=== PATIENT | male | born 1990 | race Two or more races ===

== ENCOUNTER 2018-09-16 22:26 | Emergency (ER) | payer SELFPAY ==
--- NOTE | 2018-09-16 22:59 | EDM.PDOC ---
ED HPI GENERAL MEDICAL PROBLEM - General Chief Complaint: Genitourinary Problem Stated Complaint: ERECTION FOR 4-5 HOURS Time Seen by Provider: 09/16/18 22:46 Source of Information: Reports: Patient, RN Notes Reviewed, Significant Other ( Girlfriend) History Limitations: Reports: No Limitations - History of Present Illness INITIAL COMMENTS - FREE TEXT/NARRATIVE: The patient states that he took one of his mother's trazodone pills around 14: 30 this afternoon, then awoke around 18:00 with a painful erection that he has not been able to relieve. He states that he tried taking a cold shower, but vomited. He also reports not having any urine output since he woke up. No prior similar symptoms. The patient is certain that the medication that he took was trazodone. While they are his mother's, he states that she gave him up 4 tablets, that they are all identical, and the same as prior trazodone pills that he has taken in the past. He denies any other recreational drug use. The patient does not have a PCP. Penis Pain Score (Numeric/FACES): 9 - Related Data Allergies Allergy/AdvReac Type Severity Reaction Status Date / Time No Known Allergies Allergy Verified 09/16/18 22:38 Home Meds: Home Meds . [No Known Home Meds] 09/16/18 [History] Past Medical History - Past Health History Medical/Surgical History: Denies Medical/Surgical History Social & Family History - Tobacco Use Smoking Status *Q: Current Every Day Smoker Years of Tobacco use: 14 Packs/Tins Daily: 0.3 - Alcohol Use Alcohol Use History: Yes Alcohol Use Frequency: Socially - Recreational Drug Use Recreational Drug Use: Yes Drug Use in Last 12 Months: Yes Recreational Drug Type: Reports: Marijuana/Hashish (last smoked January 2018) - Living Situation & Occupation Living situation: Reports: Single, Alone Occupation: Employed ([employer]) ED ROS GENERAL - Review of Systems Review Of Systems: ROS reveals no pertinent complaints other than HPI. ED EXAM, RENAL/ - Physical Exam Exam: See Below Exam Limited By: No Limitations General Appearance: Alert, WD/WN, No Apparent Distress Eye Exam: Bilateral Eye: EOMI, Normal Inspection Ears: Normal External Exam, Hearing Grossly Normal Nose: Normal Inspection Throat/Mouth: Normal Inspection, Normal Lips, Normal Voice, No Airway Compromise Head: Atraumatic, Normocephalic Neck: Normal Inspection, Full Range of Motion Respiratory/Chest: No Respiratory Distress, Lungs Clear, Normal Breath Sounds, No Accessory Muscle Use Cardiovascular: Normal Peripheral Pulses, Regular Rate, Rhythm, No Gallop, No JVD, No Murmur, No Rub GI/Abdominal: Normal Bowel Sounds, Soft, Non-Tender, No Organomegaly, No Distention, No Abnormal Bruit, No Mass (Male) Exam: Circumcised, Other (Penile erection. No discoloration.) Rectal (Males) Exam: Deferred Back Exam: Normal Inspection, Full Range of Motion, NT Extremities: Normal Inspection, Normal Range of Motion, No Pedal Edema, Normal Capillary Refill Neurological: Alert, Oriented, Normal Cognition, No Motor/Sensory Deficits Psychiatric: Normal Affect Skin Exam: Warm, Dry, Intact, Normal Color, No Rash ED PROCEDURES - Additional/Other Procedure(s) Procedure(s) (Free Text): Procedure: Intracavernosal injection of phenylephrine Indication: Ischemic priapism Sterile prep: Betadyne Anesthesia: Bupivacaine 0.5% without epinephrine The shaft of the penis was sterilized with Betadine. I then injected about 1 ml bupivacaine 0.5% without epinephrine into the skin of the lateral aspect of the penis, midshaft, for local anesthesia, then, using a 27-gauge needle, I injected 1 mL = 100 g of phenylephrine into the left corpora cavernosum at midshaft every 3 minutes, leaving the needle in place but removing and replacing the syringe, until 7 mL had been injected, after which I the injections 4 to 5 minutes apart. The patient tolerated the procedure well. Course - Vital Signs Last Recorded V/S: Last Vital Signs Temp 36.2 C 09/16/18 22:38 Pulse 76 09/16/18 22:38 Resp 20 09/16/18 22:38 BP 131/71 09/16/18 22:38 Pulse Ox 100 09/16/18 22:38 - Orders/Labs/Meds Orders: Active Orders 24 hr Category Date Time Status Bladder Scan [RC] ASDIRECTED Care 09/16/18 22:49 Active Meds: Medications Discontinued Medications Generic Name Dose Route Start Last Admin Trade Name Freq PRN Reason Stop Dose Admin Bupivacaine HCl 10 ml 09/16/18 23:18 09/17/18 00:58 Sensorcaine-Mpf 0.5% INJECT 09/16/18 23:19 10 ml ONETIME ONE Administration Ibuprofen 600 mg 09/17/18 02:43 09/17/18 02:47 Motrin PO 09/17/18 02:44 600 mg ONETIME ONE Administration Phenylephrine HCl 1 mg 09/16/18 23:18 Phenylephrine In Ns 100 Mcg/Ml IVPUSH 09/16/18 23:19 ONETIME STA Phenylephrine HCl Confirm 09/16/18 23:26 09/17/18 00:58 Melvin-Synephrine Administered 09/16/18 23:27 10 mg Dose Administration 10 mg .ROUTE .[facility] ONE - Re-Assessments/Exams Free Text/Narrative Re-Assessment/Exam: 09/16/18 23:[address] [facility] [place] [facility], but they did not answer. We are trying [facility] Call. 09/17/18 00:57 Case discussed with [facility] Call at 23:01. Case then discussed with Dr. Montgomery at 23:05, Urologist at [facility]. He recommended that we prepare a solution of phenylephrine for injection, at 1 mg/10 ml = 100 g/ml. He recommended that I numb the skin of the lateral side of the penis with some local anesthetic, then inject 1 mL = 100 g into one of the corpora cavernosum at midshaft, every 3 to 5 minutes, to a maximum of 1 mg = 10 ml. Only one side needs injection, because the two communicate. He explained that I should not expect an immediate response, but that if the erection can reduce to 20-30% erection, the patient would likely be able to be discharged home. If we cannot get the erection down to that degree, then the patient would likely need to be transferred to [place] for clot evacuation, which would require a penile block and large-bore needle. The above phenylephrine preparation was made and checked. Please see the procedure note. Initially, there was no reduction in the patient's erection, however, after about 7 mL of injection, the erection began to decrease, and, now, following the full 10 mL injection, the erection is down to about 20%. [facility] Call again contacted at 00:47. Case then discussed again with Dr. Montgomery at 00:50. Based on the degree of reduction of the erection, he did not feel that the patient needed to be transferred to [place] at this time. He recommended that we keep the patient here in the ED for another hour, applying an ice pack on and off every 10 or 15 minutes, and keep the patient adequately hydrated. So long as the patient's erection does not return, the patient can follow-up with Dr. Montgomery in 1- 2 weeks. 09/17/18 02:25 The patient was able to urinate. On physical examination, the patient appears to have an approximately 30% erection, which Dr. Montgomery had indicated might happen, and is not a reason to not send him home, however, instead of having the patient follow-up in 1 to 2 weeks, I am recommending that the patient contact Dr. Montgomery's office first thing this morning, to see if he should travel to [place] to be seen sooner. The patient agreed to. Departure - Departure Time of Disposition: 02:30 Disposition: Home, Self-Care 01 Condition: Good Clinical Impression: Drug-induced priapism - Discharge Information *PRESCRIPTION DRUG MONITORING PROGRAM REVIEWED*: Not Applicable *COPY OF PRESCRIPTION DRUG MONITORING REPORT IN PATIENT MARQUES: Not Applicable Instructions: Priapism Referrals: Carmelina Montgomery MD [Ordering Only Provider] - Forms: ED Department Discharge, ED Return to Work/School Form Additional Instructions: You were seen in the emergency room for a prolonged erection, a condition known as priapism. In consultation with the Urologist Dr. Montgomery, your penis was repeatedly injected with phenylephrine, successfully reducing your erection to 20-30%. We recommend that you continue to apply ice packs for 10-15 minutes on and off, for the next few days. As discussed, inadequately treated priapism can lead to lifelong impotence, therefore we strongly recommend that you contact the office of Dr. Montgomery first thing this morning, to make an appointment to be seen as soon as possible. Be aware that Dr. Montgomery's office is in [place], 1 hour ahead of us. If any other problems, including recurrence of your priapism or any difficulty urinating, please do not hesitate to return to the ER. - My Orders Last 24 Hours: My Active Orders 09/16/18 22:49 Bladder Scan [RC] ASDIRECTED - Assessment/Plan Last 24 Hours: My Active Orders 09/16/18 22:49 Bladder Scan [RC] ASDIRECTED
[2018-09-16] MEDS ORDERED: Bupivacaine 0.5% 10 ML SDV INJECT ONE (23:18)
[2018-09-16] MEDS ORDERED: Phenylephrine/Normal Saline 100 MCG/ML 10 ML Syringe IVPUSH STA (23:18)
[2018-09-16] MEDS ORDERED: Phenylephrine 1% 10 MG/ML SDV ONE (23:26)
[2018-09-17] MEDS ORDERED: Ibuprofen 600 MG Tab PO ONE (02:43)
== END 2018-09-17 02:48 | disposition home or self-care (01) ==
LOC: JD.ED 22:26
DX: T43.211A Poisoning by selective serotonin and norepinephrine reuptake inhibitors, accidental (unintentional), initial encounter (principal); N48.33 Priapism, drug-induced
CPT/HCPCS: 54220; 99283; A9270; J2370; J3490

== ENCOUNTER 2022-02-02 21:40 | Emergency (ER) | payer BC | END 2022-02-02 22:26 | LOC: JD.ED 21:40 | DX: Z53.21 Procedure and treatment not carried out due to patient leaving prior to being seen by health care provider (principal) ==

== ENCOUNTER 2023-03-16 20:06 | Emergency (ER) | payer SELFPAY ==
[2023-03-16 20:45] LABS: HEMATOCRIT 40.9 % (42.0-52.0); HEMOGLOBIN 14.4 gm/dl (14.0-18.0); MEAN CORPUSCULAR HGB CONC 35.2 g/dl (32.0-36.0); MEAN CORPUSCULAR VOLUME 85.2 fl (83.0-99.0); PLATELET COUNT,PLT 286 K/mm3 (150-400)
[2023-03-16 20:47] LABS: BARBITURATE SCREEN,URINE NEGATIVE (CUTOFF=200); BENZODIAZEPINES SCREEN,URINE NEGATIVE (CUTOFF=150); BUPRENORPHINE SCREEN,URINE NEGATIVE (CUTOFF=10); METHADONE SCREEN, URINE NEGATIVE (CUT0FF=200); METHAMPHETAMINES SCREEN, URINE NEGATIVE (CUTOFF=500); OXYCODONE SCREEN,URINE NEGATIVE (CUT0FF=100); PROPOXYPHENE SCREEN,URINE NEGATIVE (CUTOFF=300); THC SCREEN,URINE 20 NG/ML NEGATIVE (CUTOFF=50)
[2023-03-16 20:51] LABS: AMPHETAMINES SCREEN, URINE NEGATIVE (CUTOFF=500)
[2023-03-16 21:20] LABS: BAND PERCENT MAN 0 % (0-10); BASOPHILS PERCENT MAN 0 (0.2-1.2); EOSINOPHILS PERCENT MAN 3 % (0.8-7.0); LYMPHOCYTES % ATYPICAL MANUAL 0 %; LYMPHOCYTES PERCENT MAN 37 % (20-40); MONOCYTES PERCENT MAN 12 % (2-10)
[2023-03-16 21:21] LABS: PLATELET COUNT ESTIMATE ADEQUATE
[2023-03-16 21:22] LABS: A/G RATIO 1.3 (1-2); ANION GAP 10.9 (5-15); BILIRUBIN TOTAL 0.2 mg/dL (0.2-1.0); CALCIUM 9.1 mg/dL (8.5-10.1); EST CRCL DRUG DOSING (CG) 112.95 mL/min; POTASSIUM,K 3.9 mEq/L (3.5-5.1); TSH 1.524 uIU/mL (0.358-3.74)
[2023-03-16] MEDS ORDERED: LORazepam 1 MG Tab PO ONE (21:51)
== END 2023-03-16 22:35 | disposition left against medical advice (07) ==
LOC: JD.ED 20:06
DX: Z00.8 Encounter for other general examination (principal); Z53.20 Procedure and treatment not carried out because of patient's decision for unspecified reasons
CPT/HCPCS: 36415; 80053; 80143; 80179; 80306; 80307; 84443; 85007; 85027; 93005; 99283; A9270

== ENCOUNTER 2024-01-09 11:31 | Observation (INO) | payer MEDICAID ==
[2024-01-09] MEDS: Sodium Chloride 0.9% 10 ML Syringe FLUSH ONE (12:18)
[2024-01-09] MEDS: Iopamidol 612 MG/ML 100 ML Bottle IVPUSH ONE (12:18)
[2024-01-09] MEDS: Dexamethasone 4 MG/ML SDV IVPUSH ONE (12:27)
[2024-01-09] MEDS: Ketorolac 30 MG/ML SDV IVPUSH ONE (12:27)
[2024-01-09] MEDS: Sodium Chloride 0.9% 1,000 ML IV ONE (12:27)
[2024-01-09] MEDS: cefTRIAXone 1 GM in Sodium Chloride 0.9% 100 ML IV ONE (12:51)
[2024-01-09] MEDS: VANCOmycin 1.5 GM/300 ML 1.5 GM in Premix Bag 1 BAG IV ONE (12:51)
[2024-01-09 12:56] LABS: BASOPHILS PERCENT AUTO 0.2 % (0.0-1.0); EOSINOPHILS ABSOLUTE AUTO 0.1 K/mm3 (0.0-0.4); EOSINOPHILS PERCENT AUTO 0.6 % (0.0-6.0); IMMATURE GRAN ABSOLUTE AUTO 0.05 K/mm3 (0.00-0.05); IMMATURE GRAN PERCENT AUTO 0.4 % (0.0-0.4); LYMPHOCYTES ABSOLUTE AUTO 1.5 K/mm3 (1.0-4.8); LYMPHOCYTES PERCENT AUTO 11.2 % (24.0-44.0); MEAN CORPUSCULAR HEMOGLOBIN 29.5 pg (28.0-32.0); MEAN CORPUSCULAR VOLUME 84.4 fl (83.0-99.0); MEAN PLATELET VOLUME 9.3 fl (9.4-12.4); MONOCYTES ABSOLUTE AUTO 1.2 K/mm3 (0.0-0.8); MONOCYTES PERCENT AUTO 8.4 % (0.0-8.0); NEUTROPHILS ABSOLUTE AUTO 10.9 K/mm3 (1.8-7.7); NEUTROPHILS PERCENT AUTO 79.2 % (41.0-71.0); PLATELET COUNT,PLT 301 K/mm3 (150-400); RED BLOOD CELL COUNT 5.45 M/mm3 (4.52-5.90); WHITE BLOOD CELL COUNT,WBC 13.77 K/mm3 (3.9-11.3)
[2024-01-09 13:00] LABS: HEMOGLOBIN 16.1 gm/dl (14.0-18.0)
[2024-01-09 13:16] LABS: A/G RATIO 1.2 (1-2); ALBUMIN 4.2 g/dl (3.4-5.0); BILIRUBIN TOTAL 0.4 mg/dL (0.2-1.0); BUN/CREATININE RATIO 8.2 (14-18); C-REACTIVE PROTEIN 0.19 mg/dL (<0.30); CALCIUM 9.3 mg/dL (8.5-10.1); CREATININE 1.1 mg/dL (0.7-1.3); EST CRCL DRUG DOSING (CG) 95.52 mL/min; PROTEIN TOTAL,TP 7.6 g/dl (6.4-8.2)
[2024-01-09 13:19] LABS: LACTIC ACID 1.6 mmol/L (0.4-2.0)
[2024-01-09 17:26] LABS: C. TRACHOMATIS BY PCR NOT DETECTED; N. GONORRHOEAE BY PCR NOT DETECTED
[2024-01-09] MEDS: Potassium Chloride 20 MEQ Tab.ER PO ONE (17:37)
== END 2024-01-09 18:00 | disposition left against medical advice (07) ==
LOC: JD.ED 11:31 → JD.MS 14:12
PROVIDERS: ADMIT Student in an Organized Health Care Education/Training Program; ATTEND Student in an Organized Health Care Education/Training Program
DX: L04.0 Acute lymphadenitis of face, head and neck (principal)
CPT/HCPCS: 36415; 70491; 70491-26; 80053; 83605; 85025; 85652; 86140; 86592; 87040; 87154; 87491; 87591; 96365; 96366; 96367; 96375; 99284-25; G0433; J0696; J1100; J1885; J3490; J7030; Q9967

== ENCOUNTER 2024-01-10 13:48 | Inpatient (IN) | payer MEDICAID ==
[2024-01-10] MEDS: Labetalol 100 MG/20 ML MDV IVPUSH ONE (15:46)
[2024-01-10] MEDS: Sodium Chloride 0.9% 1,000 ML IV ONE ×2 (16:09→21:24)
[2024-01-10] MEDS: cefTRIAXone 1 GM in Sodium Chloride 0.9% 100 ML IV ONE (16:09)
[2024-01-10] MEDS: methylPREDNISolone Sodium Succinate 125 MG/2 ML SDV IVPUSH ONE (16:10)
[2024-01-10] MEDS: Ketorolac 30 MG/ML SDV IVPUSH ONE (16:10)
[2024-01-10 17:46] LABS: HEMATOCRIT 43.7 % (42.0-52.0); HEMOGLOBIN 15.3 gm/dl (14.0-18.0); MEAN CORPUSCULAR HEMOGLOBIN 29.4 pg (28.0-32.0); MEAN CORPUSCULAR VOLUME 83.9 fl (83.0-99.0); PLATELET COUNT,PLT 297 K/mm3 (150-400); RED BLOOD CELL COUNT 5.21 M/mm3 (4.52-5.90); WHITE BLOOD CELL COUNT,WBC 14.43 K/mm3 (3.9-11.3)
[2024-01-10] MEDS: Enoxaparin 40 MG/0.4 ML Syringe SUBCUT SCH (17:57)
[2024-01-10 18:00] LABS: A/G RATIO 1.1 (1-2); ANION GAP 14.9 (5-15); BILIRUBIN TOTAL 0.8 mg/dL (0.2-1.0); BUN/CREATININE RATIO 6.4 (14-18); CALCIUM 9.4 mg/dL (8.5-10.1); CREATININE 1.1 mg/dL (0.7-1.3); EST CRCL DRUG DOSING (CG) 101.73 mL/min; MAGNESIUM 1.7 mg/dL (1.8-2.4); PHOSPHORUS 2.5 mg/dL (2.6-4.7); POTASSIUM,K 2.9 mEq/L (3.5-5.1); PROTEIN TOTAL,TP 7.7 g/dl (6.4-8.2)
[2024-01-10] MEDS: Ampicillin/Sulbactam Na 3 GM in Sodium Chloride 0.9% 100 ML IV SCH (20:28)
[2024-01-10] MEDS ORDERED: Ondansetron 4 MG Tab.DIS PO PRN (20:59)
[2024-01-10] MEDS: LORazepam 2 MG/ML SDV IVPUSH PRN (21:16)
[2024-01-10] MEDS: Ondansetron 4 MG/2 ML SDV IVPUSH PRN (21:23)
[2024-01-10] MEDS: Pantoprazole 40 MG Tab.CR PO PRN (21:30)
[2024-01-10] MEDS: Pantoprazole 40 MG Vial IVPUSH ONE (21:52)
[2024-01-10] MEDS: Morphine 2 MG/ML SYRINGE IVPUSH ONE (21:53)
[2024-01-11 03:09] LABS: BARBITURATE SCREEN,URINE NEGATIVE (CUTOFF=200); BENZODIAZEPINES SCREEN,URINE PRESUMPTIVE POSITIVE (CUTOFF=150); BUPRENORPHINE SCREEN,URINE NEGATIVE (CUTOFF=10); METHADONE SCREEN, URINE NEGATIVE (CUT0FF=200); METHAMPHETAMINES SCREEN, URINE PRESUMPTIVE POSITIVE (CUTOFF=500); OXYCODONE SCREEN,URINE NEGATIVE (CUT0FF=100); THC SCREEN,URINE 20 NG/ML NEGATIVE (CUTOFF=50)
[2024-01-11 03:11] LABS: AMPHETAMINES SCREEN, URINE PRESUMPTIVE POSITIVE (CUTOFF=500)
[2024-01-11] MEDS ORDERED: LORazepam 2 MG/ML SDV IVPUSH PRN (07:36)
[2024-01-11 07:48] LABS: HEMATOCRIT 38.8 % (42.0-52.0); HEMOGLOBIN 13.6 gm/dl (14.0-18.0); MEAN CORPUSCULAR HEMOGLOBIN 29.7 pg (28.0-32.0); MEAN CORPUSCULAR HGB CONC 35.1 g/dl (32.0-36.0); MEAN CORPUSCULAR VOLUME 84.7 fl (83.0-99.0); PLATELET COUNT,PLT 268 K/mm3 (150-400); RED BLOOD CELL COUNT 4.58 M/mm3 (4.52-5.90); WHITE BLOOD CELL COUNT,WBC 18.57 K/mm3 (3.9-11.3)
[2024-01-11 08:05] LABS: A/G RATIO 0.9 (1-2); ALBUMIN 3.2 g/dl (3.4-5.0); ANION GAP 11.6 (5-15); BILIRUBIN TOTAL 0.4 mg/dL (0.2-1.0); CALCIUM 8.9 mg/dL (8.5-10.1); EST CRCL DRUG DOSING (CG) 108.49 mL/min; MAGNESIUM 1.9 mg/dL (1.8-2.4); PHOSPHORUS 3.1 mg/dL (2.6-4.7); POTASSIUM,K 3.6 mEq/L (3.5-5.1); PROTEIN TOTAL,TP 6.8 g/dl (6.4-8.2)
[2024-01-11] MEDS: Pantoprazole 40 MG Vial IVPUSH SCH (14:39)
[2024-01-11] MEDS: Potassium Chloride 20 MEQ Tab.ER PO ONE (14:40)
[2024-01-12 05:48] LABS: HEMATOCRIT 37.9 % (42.0-52.0); HEMOGLOBIN 13.2 gm/dl (14.0-18.0); MEAN CORPUSCULAR HEMOGLOBIN 29.5 pg (28.0-32.0); MEAN CORPUSCULAR HGB CONC 34.8 g/dl (32.0-36.0); MEAN CORPUSCULAR VOLUME 84.8 fl (83.0-99.0); MEAN PLATELET VOLUME 9.2 fl (9.4-12.4); PLATELET COUNT,PLT 229 K/mm3 (150-400); RED BLOOD CELL COUNT 4.47 M/mm3 (4.52-5.90)
[2024-01-12 06:07] LABS: ANION GAP 11.8 (5-15); C-REACTIVE PROTEIN 7.41 mg/dL (<0.30); CALCIUM 8.4 mg/dL (8.5-10.1); CREATININE 0.9 mg/dL (0.7-1.3); EST CRCL DRUG DOSING (CG) 120.54 mL/min; POTASSIUM,K 3.8 mEq/L (3.5-5.1)
[2024-01-12] MEDS: Acetaminophen 325 MG Tab PO PRN (20:51)
[2024-01-12] MEDS ORDERED: Potassium Chloride 20 MEQ Tab.ER PO ONE (22:08)
[2024-01-13] MEDS: Potassium Chloride 20 MEQ Tab.ER PO ONE (01:31)
[2024-01-13 05:45] LABS: HEMATOCRIT 38.6 % (42.0-52.0); HEMOGLOBIN 13.6 gm/dl (14.0-18.0); MEAN CORPUSCULAR HEMOGLOBIN 29.4 pg (28.0-32.0); MEAN CORPUSCULAR HGB CONC 35.2 g/dl (32.0-36.0); MEAN CORPUSCULAR VOLUME 83.5 fl (83.0-99.0); PLATELET COUNT,PLT 258 K/mm3 (150-400); RED BLOOD CELL COUNT 4.62 M/mm3 (4.52-5.90); WHITE BLOOD CELL COUNT,WBC 7.33 K/mm3 (3.9-11.3)
[2024-01-13 06:03] LABS: C-REACTIVE PROTEIN 3.67 mg/dL (<0.30); CALCIUM 8.8 mg/dL (8.5-10.1); CREATININE 0.9 mg/dL (0.7-1.3); EST CRCL DRUG DOSING (CG) 120.54 mL/min
[2024-01-13] MEDS ORDERED: LORazepam 1 MG Tab PO PRN (15:11)
[2024-01-13] MEDS: Iopamidol 612 MG/ML 100 ML Bottle IVPUSH ONE (18:44)
[2024-01-14 04:49] LABS: HEMATOCRIT 40.6 % (42.0-52.0); MEAN CORPUSCULAR HEMOGLOBIN 29.2 pg (28.0-32.0); MEAN CORPUSCULAR HGB CONC 34.5 g/dl (32.0-36.0); MEAN CORPUSCULAR VOLUME 84.6 fl (83.0-99.0); MEAN PLATELET VOLUME 9.2 fl (9.4-12.4); PLATELET COUNT,PLT 299 K/mm3 (150-400); WHITE BLOOD CELL COUNT,WBC 7.79 K/mm3 (3.9-11.3)
[2024-01-14 05:18] LABS: ANION GAP 11.8 (5-15); BUN/CREATININE RATIO 13.3 (14-18); C-REACTIVE PROTEIN 1.78 mg/dL (<0.30); CALCIUM 9.1 mg/dL (8.5-10.1); CREATININE 0.9 mg/dL (0.7-1.3); EST CRCL DRUG DOSING (CG) 120.54 mL/min; POTASSIUM,K 3.8 mEq/L (3.5-5.1)
[2024-01-14] MEDS: Pantoprazole 40 MG Tab.CR PO SCH (09:51)
[2024-01-14] MEDS ORDERED: fentaNYL 100 MCG/2 ML SDV ONE (11:34)
[2024-01-14] MEDS ORDERED: Lidocaine 1% 5 ML VIAL ONE (11:34)
[2024-01-14] MEDS ORDERED: Midazolam 1 MG/ML 2 ML SDV ONE (11:34)
[2024-01-14] MEDS ORDERED: Propofol 200 MG/20 ML SDV ONE (11:34)
[2024-01-14] MEDS ORDERED: Succinylcholine 200 MG/10 ML MDV ONE (11:41)
[2024-01-14] MEDS ORDERED: EPINEPHrine 1 MG/ML SDV ONE (11:56)
[2024-01-14] MEDS: Lactated Ringers 1,000 ML IV SCH (12:00)
[2024-01-14] MEDS ORDERED: Ondansetron 4 MG/2 ML SDV ONE ×2 (12:17→12:23)
[2024-01-14] MEDS ORDERED: dexmedeTOMIDine HCl 200 MCG/2 ML SDV ONE (12:21)
[2024-01-14] MEDS ORDERED: Lactated Ringers 1,000 ML ONE (12:29)
[2024-01-14] MEDS: Ketorolac 15 MG/ML SDV IVPUSH SCH (12:59)
[2024-01-14] MEDS ORDERED: Ondansetron 4 MG/2 ML SDV IVPUSH PRN (13:01)
[2024-01-14] MEDS ORDERED: HYDROmorphone 0.5 MG/0.5 ML Syringe IVPUSH PRN (13:01)
[2024-01-14] MEDS: fentaNYL 100 MCG/2 ML SDV IVPUSH PRN (13:24)
[2024-01-14] MEDS: Bupivacaine 0.5% 30 ML SDV ONE (13:40)
[2024-01-15 04:52] LABS: BASOPHILS PERCENT AUTO 0.5 % (0.0-1.0); EOSINOPHILS ABSOLUTE AUTO 0.2 K/mm3 (0.0-0.4); EOSINOPHILS PERCENT AUTO 1.9 % (0.0-6.0); HEMATOCRIT 38.8 % (42.0-52.0); HEMOGLOBIN 13.3 gm/dl (14.0-18.0); IMMATURE GRAN ABSOLUTE AUTO 0.05 K/mm3 (0.00-0.05); IMMATURE GRAN PERCENT AUTO 0.6 % (0.0-0.4); LYMPHOCYTES ABSOLUTE AUTO 2.1 K/mm3 (1.0-4.8); LYMPHOCYTES PERCENT AUTO 27.7 % (24.0-44.0); MEAN CORPUSCULAR HEMOGLOBIN 29.2 pg (28.0-32.0); MEAN CORPUSCULAR HGB CONC 34.3 g/dl (32.0-36.0); MEAN CORPUSCULAR VOLUME 85.1 fl (83.0-99.0); MEAN PLATELET VOLUME 9.2 fl (9.4-12.4); MONOCYTES ABSOLUTE AUTO 0.7 K/mm3 (0.0-0.8); MONOCYTES PERCENT AUTO 8.5 % (0.0-8.0); NEUTROPHILS ABSOLUTE AUTO 4.7 K/mm3 (1.8-7.7); NEUTROPHILS PERCENT AUTO 60.8 % (41.0-71.0); PLATELET COUNT,PLT 304 K/mm3 (150-400); RED BLOOD CELL COUNT 4.56 M/mm3 (4.52-5.90); WHITE BLOOD CELL COUNT,WBC 7.73 K/mm3 (3.9-11.3)
[2024-01-15 05:18] LABS: ANION GAP 8.9 (5-15); BUN/CREATININE RATIO 12.2 (14-18); CALCIUM 8.7 mg/dL (8.5-10.1); CREATININE 0.9 mg/dL (0.7-1.3); EST CRCL DRUG DOSING (CG) 120.54 mL/min; MAGNESIUM 2.1 mg/dL (1.8-2.4); POTASSIUM,K 3.9 mEq/L (3.5-5.1)
[2024-01-15] MEDS: Amoxicillin/Clavulanate K 875-125 MG Tab PO SCH (20:35)
[2024-01-15] MEDS ORDERED: Amoxicillin/Clavulanate K 875-125 MG Tab PO SCH (21:00)
[2024-01-16 04:49] LABS: BASOPHILS PERCENT AUTO 0.7 % (0.0-1.0); EOSINOPHILS ABSOLUTE AUTO 0.2 K/mm3 (0.0-0.4); EOSINOPHILS PERCENT AUTO 3.5 % (0.0-6.0); HEMATOCRIT 40.2 % (42.0-52.0); HEMOGLOBIN 13.8 gm/dl (14.0-18.0); IMMATURE GRAN ABSOLUTE AUTO 0.05 K/mm3 (0.00-0.05); IMMATURE GRAN PERCENT AUTO 0.9 % (0.0-0.4); LYMPHOCYTES ABSOLUTE AUTO 1.6 K/mm3 (1.0-4.8); LYMPHOCYTES PERCENT AUTO 29.2 % (24.0-44.0); MEAN CORPUSCULAR HEMOGLOBIN 29.2 pg (28.0-32.0); MEAN CORPUSCULAR HGB CONC 34.3 g/dl (32.0-36.0); MEAN PLATELET VOLUME 8.7 fl (9.4-12.4); MONOCYTES ABSOLUTE AUTO 0.6 K/mm3 (0.0-0.8); MONOCYTES PERCENT AUTO 11.3 % (0.0-8.0); NEUTROPHILS PERCENT AUTO 54.4 % (41.0-71.0); PLATELET COUNT,PLT 294 K/mm3 (150-400); RED BLOOD CELL COUNT 4.73 M/mm3 (4.52-5.90); WHITE BLOOD CELL COUNT,WBC 5.48 K/mm3 (3.9-11.3)
[2024-01-16 05:12] LABS: ANION GAP 9.8 (5-15); C-REACTIVE PROTEIN 0.85 mg/dL (<0.30); CALCIUM 8.8 mg/dL (8.5-10.1); EST CRCL DRUG DOSING (CG) 108.49 mL/min; MAGNESIUM 2.2 mg/dL (1.8-2.4); POTASSIUM,K 3.8 mEq/L (3.5-5.1)
== END 2024-01-16 12:23 | disposition home or self-care (01) | DRG 159 ==
LOC: JD.ED 13:48 → JD.MS 17:30
PROVIDERS: ADMIT Student in an Organized Health Care Education/Training Program; ATTEND Student in an Organized Health Care Education/Training Program
PROC: 0J913ZZ Drainage of Face Subcutaneous Tissue and Fascia, Percutaneous Approach (ICD-10-PCS; principal; 2024-01-14 13:15)
DX: K12.2 Cellulitis and abscess of mouth (principal); F90.9 Attention-deficit hyperactivity disorder, unspecified type; F19.10 Other psychoactive substance abuse, uncomplicated; L04.0 Acute lymphadenitis of face, head and neck; F17.210 Nicotine dependence, cigarettes, uncomplicated
CPT/HCPCS: 36415; 70360; 70360-26; 70491; 70491-26; 80048; 80053; 80306; 83605; 83735; 84100; 84145; 85025; 85027; 86140; 87040; 87070; 87075; 87077; 87186; 87205; A9270-GY; C9113; J0171; J0295; J0330; J0665; J0696; J1650; J1885; J2060; J2250; J2270; J2405; J2704; J2919; J3010; J3475; J3490; J7030; J7120

== ENCOUNTER 2024-10-07 13:24 | Emergency (ER) | payer MEDICAID | END 2024-10-07 16:18 | disposition home or self-care (01) | LOC: JD.ED 13:24 | DX: L05.01 Pilonidal cyst with abscess (principal); Z79.899 Other long term (current) drug therapy | CPT/HCPCS: 99283 ==